=== PATIENT | female | born 1965 | race Caucasian/White ===

== ENCOUNTER → 2019-01-20 | Outpatient (CLI) | payer OTHER ==
[2019-01-20 11:49] LABS: Basophils # (A) 0.1 k/uL (0-0.2); Basophils % (A) 1 %; Eosinophils # (A) 0.1 k/uL (0-0.7); Eosinophils % (A) 1 %; HCT 42.3 % (34.0-46.0); Lymphocytes # (A) 1.7 k/uL (1.0-4.8); Lymphocytes % (A) 34 %; MCH 29.5 pg (25.0-35.0); MCHC 30.8 g/dL (31.0-37.0); MCV 95.6 fL (80.0-100.0); Mean Platelet Volume 8.4; Monocytes # (A) 0.3 k/uL (0-1.0); Monocytes % (A) 6 %; Neutrophils # (A) 2.8 k/uL (1.3-7.7); Neutrophils % (A) 54 %; Platelet Count 262 k/uL (150-450); RBC 4.42 m/uL (3.80-5.40); WBC 5.2 k/uL (3.8-10.6)
== END | disposition home or self-care (01) ==
LOC: LABWHC1 10:50
PROVIDERS: ATTEND Obstetrics & Gynecology Obstetrics
DX: Z01.812 Encounter for preprocedural laboratory examination (principal); N95.0 Postmenopausal bleeding; N84.0 Polyp of corpus uteri
CPT/HCPCS: 36415; 85025

== ENCOUNTER 2019-02-16 07:08 | Day surgery (SDC) | payer OTHER ==
[2019-02-15 08:38] VITALS: BMI 20.6
[~2019-02-16 07:08] MED LIST: DEXAMETHASONE SOD PHOSPHATE 10 MG/ML 1 ML VIAL IV ONE; HYDROmorphone 0.5 MG/0.5 ML SYRINGE IVP PRN; LACTATED RINGERS 1,000 ML IV SCH; MIDAZOLAM 2 MG/2 ML VIAL IV PRN; ONDANSETRON 4 MG/2 ML VIAL IVP ONE; Pre Op ABX Message 1 EACH MISC MISCELLANE ONE; SCOPOLAMINE 1.5MG/72HR PATCH TRANSDERM ONE
[2019-02-16] MEDS ORDERED: LIDOCAINE 1% 20 ML VIAL (10MG/ML) FOR IV START INTRADERMA ONE (07:38)
[2019-02-16] MEDS ORDERED: PROPOFOL 10 MG/ML 20 ML VIAL IV ONE (08:35)
[2019-02-16] MEDS ORDERED: LIDOCAINE 1% INJ 10MG/ML (20 ML MDV) ONE (08:35)
[2019-02-16] MEDS ORDERED: KETOROLAC 30 MG/ML 1 ML VIAL ONE (08:35)
[2019-02-16] MEDS ORDERED: fentaNYL (PF) 50 MCG/ML 2 ML AMP ONE (08:35)
[2019-02-16] MEDS ORDERED: MIDAZOLAM 2 MG/2 ML VIAL ONE (08:35)
[2019-02-16] MEDS ORDERED: LACTATED RINGERS 1,000 ML IV ONE (09:01)
[2019-02-16 09:11] VITALS: TEMP 96.8
--- NOTE | 2019-02-16 09:15 | P.OP ---
Date of Procedure: 02/16/19 Preoperative Diagnosis: Endometrial/cervical polyp, cervical stenosis Postoperative Diagnosis: Same Procedure(s) Performed: Hysteroscopy, dilation and curettage Anesthesia: MAC Surgeon: Otilia Perkins Estimated Blood Loss (ml): 5 IV fluids (ml): 500 Urine output (ml): 150 Pathology: other (Endometrial curettings, polyp, nabothian cyst wall) Condition: stable Disposition: PACU Indications for Procedure: Postmenopausal bleeding Operative Findings: Upon visualization of the cervix a cervical polyp was noted to be protruding through the cervical os, nabothian cysts noted around 3:00. On section the p atient's endometrial cavity and endometrial polyp was noted Description of Procedure: Patient was seen in the preoperative area and informed consent was obtained all questions were answered. Patient was taken back to the operating suite where general anesthesia was obtained without difficulty by the anesthesia department. She was prepped and draped in the normal sterile fashion in the dorsal lithotomy position. A weighted speculum posterior vaginal vault after a red rubber catheter was used to drain the bladder clear yellow urine. The anterior lip of the cervix is visualized and grasped with a single-tooth tenaculum. The polyp was visualized. The endocervical canal was then dilated until 15-Armenian. Hysteroscope was placed through the cervix and toward the and Joana cavity and endometrial polyp was noted in addition. A sharp curettage was then performed and both polyps were removed without difficulty. Nabothian cyst was visualized at the 3 o'clock position of the cervix. This was incised and drained. At this time the single-tooth tenaculum was taken off of the anterior lip of the cervix hemostasis was appreciated. All instruments were then removed from the patient's vaginal vault all counts are correct 2 patient was taken to the recovery room awake in stable condition.
[2019-02-16 10:27] VITALS: BP 135/67; PULSE 49; RESP 18
== END 2019-02-16 10:36 | disposition home or self-care (01) ==
LOC: OR 07:08
PROVIDERS: ATTEND Obstetrics & Gynecology Obstetrics
DX: N84.0 Polyp of corpus uteri (principal); N84.1 Polyp of cervix uteri; N88.8 Other specified noninflammatory disorders of cervix uteri; N88.2 Stricture and stenosis of cervix uteri
CPT/HCPCS: 58558; 88305; 81025; J2250; J1100; J2405; J2001; J3010; J1885; J2704